=== PATIENT | male | born 1955 | race Two or more races ===

== ENCOUNTER 2025-06-22 08:44 | Outpatient (CLI) | payer OTHER | END 2025-06-22 08:56 | disposition home or self-care (01) | LOC: RAD 08:44 | PROVIDERS: ATTEND Internal Medicine Cardiovascular Disease | DX: M19.90 Unspecified osteoarthritis, unspecified site (principal); M10.9 Gout, unspecified ==

== ENCOUNTER 2025-06-23 07:33 | Outpatient (CLI) | payer OTHER | END 2025-06-23 07:36 | disposition home or self-care (01) | LOC: RAD 07:33 | DX: M25.551 Pain in right hip (principal); M54.9 Dorsalgia, unspecified ==